=== PATIENT | female | born 1975 | race Caucasian/White ===

== ENCOUNTER 2017-03-24 10:41 | Emergency (ER) | payer MEDICAID ==
[2015-12-23 06:03] VITALS: BMI 24.6
[~2017-03-24 10:41] MED LIST: AMBIEN10 MG PO; CARAFATE1 G/10 ML PO; CIALIS10 MG PO; COLACE100 MG PO; FLUTICASONE PRO16 GM NASAL; GEODON60 MG PO; GLYCOLAX527 GM PO; HYDROCODONE-APA1 TAB PO; OMEPRAZOLE40 MG PO; PROAIR HFA8.5 GM INH; SINGULAIR10 MG PO; TOPAMAX50 MG PO; VALIUM10 MG PO; XYZAL5 MG PO
[2017-03-24 11:23] LABS: BASOPHILS 0.2 % (0-2); EOSINOPHILS 1.3 % (0-7); HEMATOCRIT 42.7 % (36.0-48.0); HEMOGLOBIN 14.9 g/dL (12-16); IMMATURE GRANULOCYTES 0.3 % (0-5); LYMPHOCYTES 20.4 % (15-50); MCHC 34.9 g/dL (31.0-37.0); MCV 91.8 fL (80.0-100.0); MEAN PLATELET VOLUME 9.3 fL (7.4-10.4); NEUTROPHILS 73.8 % (40-80); PLATELET COUNT 229 10x3/uL (130-400); RBC 4.65 10x6/uL (4.00-5.40); RDW 12.9 % (11.5-14.5); WBC 10.2 10x3/uL (4.8-10.8)
[2017-03-24 11:53] LABS: ALBUMIN 3.5 g/dL (3.4-5.0); ALKALINE PHOSPHATASE 72 U/L (46-116); ALT (SGPT) 16 U/L (10-68); AMYLASE - SERUM 31 U/L (25-115); BILIRUBIN - TOTAL 0.66 mg/dL (0.2-1.3); CALC OSMOLALITY 277 mosm/kg (275-300); CALCIUM 8.4 mg/dL (8.5-10.1); CARBON DIOXIDE 19.7 mmol/L (21.0-32.0); CHLORIDE - SERUM 107 mmol/L (98-107); CREATININE - SERUM 0.7 mg/dL (0.6-1.3); GLUCOSE 100 mg/dL (74-106); LIPASE 147 U/L (73-393); POTASSIUM - SERUM 3.7 mmol/L (3.5-5.1); PROTEIN - SERUM 6.6 g/dL (6.4-8.2); SODIUM 138 mmol/L (136-145); UREA NITROGEN 17 mg/dL (7-18); eGFR NON AFRICAN AMERICAN > 90 mL/min (90-120)
[2017-03-24 12:00] LABS: APPEARANCE CLEAR (CLEAR); BACTERIA MANY /hpf (NONE SEEN); BILIRUBIN NEGATIVE (NEGATIVE); COLOR YELLOW (YELLOW); GLUCOSE NEGATIVE (NEGATIVE); KETONE NEGATIVE (NEGATIVE); LEUKOCYTE ESTERASE TRACE (NEGATIVE); MUCUS >1+ /lpf (NONE SEEN); NITRITE NEGATIVE (NEGATIVE); PROTEIN TRACE mg/dL (NEGATIVE); RED CELLS - URINE 0-5 /hpf (0-5); SPECIFIC GRAVITY 1.015 (1.005-1.020); UROBILINOGEN NORMAL (NORMAL)
[2017-03-24 12:01] LABS: YEAST >1+ WITH HYPHAE /hpf (NONE SEEN)
== END 2017-03-24 14:11 | disposition home or self-care (01) ==
LOC: D.ER 10:41
PROVIDERS: Emergency Medicine
DX: K29.00 Acute gastritis without bleeding (principal); K21.9 Gastro-esophageal reflux disease without esophagitis; F43.10 Post-traumatic stress disorder, unspecified; F17.200 Nicotine dependence, unspecified, uncomplicated

== ENCOUNTER 2017-06-12 12:56 | Emergency (ER) | payer MEDICAID ==
[2015-12-23 06:03] VITALS: BMI 24.6
[2017-06-12 16:14] LABS: ALBUMIN 3.3 g/dL (3.4-5.0); ALKALINE PHOSPHATASE 64 U/L (46-116); ALT (SGPT) 19 U/L (10-68); BILIRUBIN - TOTAL 0.35 mg/dL (0.2-1.3); CALC OSMOLALITY 285 mosm/kg (275-300); CALCIUM 8.2 mg/dL (8.5-10.1); CARBON DIOXIDE 16.9 mmol/L (21.0-32.0); CHLORIDE - SERUM 111 mmol/L (98-107); CREATININE - SERUM 0.7 mg/dL (0.6-1.3); GLUCOSE 86 mg/dL (74-106); POTASSIUM - SERUM 4.4 mmol/L (3.5-5.1); PROTEIN - SERUM 6.1 g/dL (6.4-8.2); SODIUM 143 mmol/L (136-145); UREA NITROGEN 18 mg/dL (7-18); eGFR NON AFRICAN AMERICAN > 90 mL/min (90-120)
[2017-06-12 16:28] LABS: BASOPHILS 0.4 % (0-2); EOSINOPHILS 1.3 % (0-7); HEMOGLOBIN 12.7 g/dL (12-16); IMMATURE GRANULOCYTES 0.3 % (0-5); LYMPHOCYTES 45.3 % (15-50); MCHC 34.3 g/dL (31.0-37.0); MCV 90.2 fL (80.0-100.0); MEAN PLATELET VOLUME 9.4 fL (7.4-10.4); MONOCYTES 2.8 % (2-11); NEUTROPHILS 49.9 % (40-80); PLATELET COUNT 212 10x3/uL (130-400); RDW 12.7 % (11.5-14.5); WBC 7.2 10x3/uL (4.8-10.8)
[2017-06-12 16:51] LABS: HCG URINE NEGATIVE (NEGATIVE)
[2017-06-12 17:06] LABS: HCG SERUM NEGATIVE (NEGATIVE)
== END 2017-06-12 17:45 | disposition home or self-care (01) ==
LOC: D.ER 12:56
PROVIDERS: Physician Assistant
DX: R55 Syncope and collapse (principal); M54.12 Radiculopathy, cervical region

== ENCOUNTER → 2017-07-13 10:54 | Outpatient (CLI) | payer MEDICAID ==
[2015-12-23 06:03] VITALS: BMI 24.6
== END | disposition home or self-care (01) ==
LOC: D.NM 10:54
DX: R11.2 Nausea with vomiting, unspecified (principal)

== ENCOUNTER 2018-04-01 14:39 | Emergency (ER) | payer MEDICAID ==
[~2018-04-01] VITALS: Ht 165.1 cm; Wt 72.7 kg
[2018-04-01 14:45] VITALS: Ht 165.1 cm; Wt 72.7 kg
[2018-04-01 15:13] LABS: BASOPHILS 0.2 % (0-2); EOSINOPHILS 0.2 % (0-7); HEMATOCRIT 42.1 % (36.0-48.0); HEMOGLOBIN 15.3 g/dL (12-16); IMMATURE GRANULOCYTES 0.2 % (0-5); LYMPHOCYTES 12.9 % (15-50); MCH 32.1 pg (26.0-34.0); MCHC 36.3 g/dL (31.0-37.0); MCV 88.3 fL (80.0-100.0); MEAN PLATELET VOLUME 9.5 fL (7.4-10.4); MONOCYTES 2.7 % (2-11); NEUTROPHILS 83.8 % (40-80); PLATELET COUNT 214 10x3/uL (130-400); RBC 4.77 10x6/uL (4.00-5.40); RDW 12.6 % (11.5-14.5); WBC 12.4 10x3/uL (4.8-10.8)
[2018-04-01 16:28] LABS: HCG SERUM NEGATIVE (NEGATIVE)
[2018-04-01 16:39] LABS: ALBUMIN 3.7 g/dL (3.4-5.0); ANION GAP 18.7 mmol/L (8-16); BILIRUBIN - TOTAL 0.36 mg/dL (0.2-1.3); CALCIUM 8.9 mg/dL (8.5-10.1); CARBON DIOXIDE 20.6 mmol/L (21.0-32.0); POTASSIUM - SERUM 3.3 mmol/L (3.5-5.1); PROTEIN - SERUM 6.7 g/dL (6.4-8.2)
[2018-04-01 17:12] LABS: APPEARANCE HAZY (CLEAR); BILIRUBIN NEGATIVE (NEGATIVE); COLOR YELLOW (YELLOW); GLUCOSE NEGATIVE (NEGATIVE); KETONE NEGATIVE (NEGATIVE); NITRITE NEGATIVE (NEGATIVE); PROTEIN TRACE mg/dL (NEGATIVE); UROBILINOGEN NORMAL (NORMAL)
[2018-04-01 17:13] LABS: EPITHELIAL CELLS 0-5 /hpf (0-5); RED CELLS - URINE >50 /hpf (0-5); WHITE CELLS - URINE 0-5 /hpf (0-5)
[2018-04-01 17:14] LABS: BACTERIA FEW /hpf (NONE SEEN)
[2018-04-01] MEDS ORDERED: PERCOCET 10/3251 TA1 PO (19:50)
[2018-04-01] MEDS ORDERED: FLOMAX0.4 MG PO (19:51)
[2018-04-01 20:13] VITALS: BP 126/84
== END 2018-04-01 20:14 | disposition home or self-care (01) ==
LOC: D.ER 14:39
PROVIDERS: Family Medicine
DX: N20.1 Calculus of ureter (principal); G40.909 Epilepsy, unspecified, not intractable, without status epilepticus

== ENCOUNTER 2021-01-19 20:02 | Emergency (ER) | payer OTHER ==
[~2021-01-19] VITALS: Ht 165.1 cm; Wt 80.0 kg
[~2021-01-19 20:02] MED LIST changes: +FLOMAX0.4 MG PO; +KLONOPIN1 MG PO; +PERCOCET 10/3251 TA1 PO; +ZYPREXA10 MG PO
[2021-01-19 20:11] VITALS: Ht 165.1 cm; Wt 80.0 kg
[2021-01-19] MEDS ORDERED: SINGULAIR10 MG PO (20:13)
[2021-01-19] MEDS ORDERED: HYDROCODON-ACET15 ML PO (20:13)
[2021-01-19 22:25] VITALS: BP 106/85
== END 2021-01-19 22:25 | disposition home or self-care (01) ==
LOC: D.ER 20:02
DX: M25.552 Pain in left hip (principal); G89.29 Other chronic pain; J45.909 Unspecified asthma, uncomplicated; Z72.0 Tobacco use